=== PATIENT | female | born 1980 | race American Indian/Alaskan Native ===

== ENCOUNTER 2019-04-22 06:52 | Observation (INO) | payer BC, OTHER ==
--- NOTE | 2019-04-21 04:12 | History and Physical Report ---
History of Present Illness Date of examination: 04/17/19 Date of admission: 04/22/19 Chief complaint: abdominal pain, mass on ovary History of present illness: Visit Type: Acute Visit CC: abdominal pain. History of Present Illness: pt presents ER f/u: c/o abdo, voimitting, dx'd with mass on ovary (L).....................................................................Camelia Albright April 17, 2019 2:12 PM Pt states she had a sudden onset of pelvic pain and of nausea and vomiting that prompted visit to ER.While there, she was diagnosed with and 8cm cystic mass on the right ovary. Pt pain is predominiantly on the left side. Pt here for follow up. Pain is improved with pain meds but still present. Pt states she was told prior to delivey of her baby and during her pregancy she has a small dermoid cyst on her ovary. She states it was not removed because it was small and not causing her any problems. Pt was seen in ER at [facility] 4 days ago. She had both CT and abdominal sono done. TVUS was not done. The report states "patient refused," pt states she was in so much pain she was not aware that she was being asked to do the vaginal sonogram, but that she did not refuse the procedure. No torsion was noted on the US report. Pt advised of need for removal of the mass due to her pain and discomfort. She agrees. All risk, benefits, and alternatives were d/w pt and questions were addressed and answered. Pt to be consented for dx laproscopy, laproscopic cystectomy, possible oophrectomy, possible salpingectomy and any other indicated procedures. Vital Signs: Patient Profile: 39 Years Old Female LMP: 03/29/2019 Height: 70 inches (177.80 cm) Weight: 179 pounds BMI: 25.68 BP sittin / 86 (left arm) Menstrual History: LMP (date): 03/29/2019 Menarche: 12 Current Method of Contraception: OCP Date of Last Pap Smear: 12/11/2018 [employer] History Uterine Surgery (not C/S): negative Operations: negative Negative Past Surgical History Hospitalizations: negative Anesthesia Complications: negative Abnormal PAP: negative Uterine Anomaly: negative JOANA Exposure: negative Infertility: negative Infection History HIV Risk Eval: no Personal hx. of genital herpes: yes Partner hx. of genital herpes: no Hx of STD: None Active Medications (reviewed today): KETOROLAC 10 MG () one po q 4 to 6 hours .11/28 1.5-30 MG-MCG ORAL TABLET (NORETHIN RASHIDA-ETH ESTRAD-FE) 1 po qd Current Allergies (reviewed today): PENICILLIN G SODIUM (PENICILLIN G SODIUM SOLR) (Critical) Past Surgical History: Reviewed history from 07/15/2015 and no changes required: negative Negative Past Surgical History Risk Factors: Smoked Tobacco Use: Never smoker Smokeless Tobacco Use: Never Drug use: no HIV high-risk behavior: no Alcohol use: no Exercise: yes Seatbelt use: 100 % PAP Smear History: Date of Last PAP Smear: 12/11/2018 Laboratory Results Routine Urinalysis Leukocytes: negative Nitrite: negative Urobilinogen: negative Protein: 2+ Blood: negative Ketone: large (160) Bilirubin: negative Glucose: negative Physical Exam Appearance: well developed, well nourished, no acute distress; appears to be in pain Other Exams Abdomen: voluntary gurading of left lower quad and suprapubic areas, no rebound no guarding Skin: no ulcers, xanthomas Extremities: normal alignment, no joint enlargement, crepitus, masses or tenderness; normal tone and strength Genitourinary Exam Vulva: normal, no lesions or discharge Urethral meatus: normal size and location, no lesions or discharge Urethra: no discharge Bladder: no cystocele Vagina: normal appearance, no discharge, lesions. No evidence of cystocele or rectocele. Cervix: normal appearance, no lesions, no discharge Adnexa: mass palpated in the midline and in the left adnexa. Tenderness on exam Impression & Recommendations: Problem # 1: Mass of ovary (ICD-625.8) (BII63-E82.09) Orders: AFP TUMOR Marker alpha-fetoprotein serum(LC-678366) (CPT-90975) BHCG Quantitative (Q-8396)(LC-534434) (CPT-82513) Lactate dehydrogenase (KW543803)(Q593) (CPT-91603) Cancer Antigen (CA125) (Q-05163)(LC-255807) (CPT-48111) INHIBIN A(LY004586) (CPT-31617) Ofc Vst Est 93415 (CPT-94087) -reports states this is likely a dermoid but will obtain tumor markers at this time -s/sx of torsion were d/w pt and questions were addressed and answered. -flag sent to Ms. Lara to schedule the procedure LILY Medications Added to Medication List This Visit: 1) Ketorolac 10 Mg .... One po q 4 to 6 hours Past History Past Medical History: no pertinent history Past Surgical History: no surgical history [employer] History: abnormal PAP smear, herpes Family/Genetic History: other Social history: no significant social history, single Medications and Allergies Allergies Allergy/AdvReac Type Severity Reaction Status Date / Time Penicillins Allergy Unknown Verified 04/18/19 11:50 Home Medications Medication Instructions Recorded Confirmed Last Taken Type Norethindrone-E.estradiol-Iron 1 each PO DAILY 04/18/19 04/18/19 Unknown History [Blisovi Fe 1.5-30 Tablet] Review of Systems All systems: negative - Physical Exam Cardiovascular: Normal S1 Lungs: Positive: Clear to auscultation, Normal air movement Abdomen: Positive: normal appearance, soft. Negative: distention, tenderness, guarding Genitourinary (Female): Positive: normal external genitalia, normal perenium Adnexa: left: mass (fullness palpated on the left and at the midline), both: tenderness Extremities: Positive: normal. Negative: tenderness, edema Deep Tendon Reflex Grade: Normal +2 Results All other labs normal. Assessment and Plan - Patient Problems (1) Adnexal mass Status: Acute Plan to address problem: 8cm ovarian mass suspected dermoid -to OR for Laproscopic cystectomy, possible oophrectomy, possible salpingectomy and any other indicated procedures -all risk, benefits and alternatives were d/w pt and questions were addressed an answered. -consents to be signed and placed on the chart.
[~2019-04-22 06:52] MED LIST: CLEOCIN 900 MG/50 mL 900 MG/50 ML BAG IV ONE; GENTAMICIN 80 MG in NACL 0.9% 100 ML IV ONE; GENTAMICIN/NS 80 MG/100 ML 100 ML IV ONE
[2019-04-22] MEDS ORDERED: NACL BACTERIOSTATIC INFILTRATI ONE (07:22)
[2019-04-22] MEDS ORDERED: DILAUDID IV PRN (07:46)
--- NOTE | 2019-04-22 07:46 | Anesthesia Day of Surgery ---
Anesthesia Day of Surgery - Day of Surgery Patient Examined: Yes Patient H&P Reviewed: Yes Patient is NPO: Yes
--- NOTE | 2019-04-22 07:46 | Anesthesia Consultation ---
Anesthesia Consult and Med Hx Date of service: 04/22/19 - Airway Anesthetic Teeth Evaluation: Good (permanent lower retainer) ROM Head & Neck: Adequate Mental/Hyoid Distance: Adequate Mallampati Class: Class I Intubation Access Assessment: Good - Pulmonary Exam CTA: Yes - Cardiac Exam Cardiac Exam: RRR - Pre-Operative Health Status ASA Pre-Surgery Classification: ASA2 Proposed Anesthetic Plan: General - Pulmonary Hx Smoking: No Hx Respiratory Symptoms: No - Cardiovascular System Hx Hypertension: No - Central Nervous System CVA: No - Gastrointestinal Hx Gastroesophageal Reflux Disease: No - Endocrine Hx Renal Disease: No Hx Liver Disease: No Hx Insulin Dependent Diabetes: No Hx Non-Insulin Dependent Diabetes: No Hx Thyroid Disease: Yes (goiter; thyroid studies normal, no compressive symptoms) - Hematic Hx Anemia: Yes (beta-thallassemia) - Other Systems Hx Obesity: No - Additional Comments Anesthesia Medical History Comments: No prior GA. No FHx anesthetic complications.
[2019-04-22] MEDS ORDERED: GABAPENTIN PO NR (08:00)
[2019-04-22] MEDS ORDERED: VERSED IV NR (08:00)
[2019-04-22] MEDS ORDERED: TRANSDERM-SCOP TD NR (08:00)
[2019-04-22] MEDS ORDERED: LACTATED RINGERS 1,000 ML IV SCH (08:00)
[2019-04-22 08:12] LABS: Hematocrit 27.7 % (30.3-42.9); Hemoglobin 8.4 gm/dl (10.1-14.3); Mean Corpuscular HGB Conc 30 % (30-34); Platelet Count 421 K/mm3 (140-440); Red Cell Distribution Width 19.1 % (13.2-15.2)
[2019-04-22 08:14] LABS: Mean Corpuscular Volume 66 fl (79-97)
[2019-04-22] MEDS ORDERED: CLEOCIN 900 MG/50 mL 900 MG/50 ML BAG IV ONE (08:30)
[2019-04-22] MEDS ORDERED: GENTAMICIN/NS 80 MG/100 ML 100 ML IV ONE (08:30)
[2019-04-22] MEDS ORDERED: DILAUDID ONE (08:51)
[2019-04-22] MEDS ORDERED: DIPRIVAN 10 MG/ML IV ONE (08:52)
[2019-04-22] MEDS ORDERED: XYLOCAINE MPF 2% ONE (08:52)
[2019-04-22] MEDS ORDERED: ZEMURON IV ONE (08:54)
[2019-04-22] MEDS ORDERED: MARCAINE 0.5% INFILTRATI ONE ×2 (09:00→11:35)
[2019-04-22] MEDS ORDERED: DECADRON ONE (10:45)
[2019-04-22] MEDS ORDERED: ZOFRAN ONE (10:45)
[2019-04-22] MEDS ORDERED: TORADOL ONE (11:13)
[2019-04-22] MEDS ORDERED: BLOXIVERZ ONE (11:29)
[2019-04-22] MEDS ORDERED: ROBINUL ONE (11:29)
--- NOTE | 2019-04-22 11:36 | Event Note ---
Date: 04/22/19 Intra-op consult Dictated #[id number]
[2019-04-22] MEDS ORDERED: ZOFRAN IV PRN (12:04)
--- NOTE | 2019-04-22 12:04 | Operative Report ---
Operative Report Operative Report: Date of procedure: 04/22/2019 Pre-operative diagnosis: Adnexal mass Post-operative diagnosis: Same plus pelvic adhesions and torsion of left adnexa Procedure name(s): Diagnostic laparoscopy Lysis of adhesions Left salpingo-oophorectomy Surgeon: Dr. Oconnell It Support Technician: Certified surgical scrub language assistant Anesthesia: Gen. endotracheal anesthesia EBL: 100 mL Urine output: 250 mL of clear urine out at the procedure Fluids: 1350 mL Findings: Approximately 8-9 cm left adnexal mass extending from the left ovary wedged deep within the cul-de-sac. Adhesions of the mass to the posterior uterine wall and cul-de-sac. Normal right fallopian tube normal right ovary normal uterus. Indications: Patient presented with sudden onset of severe abdominal pain. Patient was seen in emergency room and was diagnosed with an 8 cm adnexal mass that appeared to be dermoid in nature. Patient was taken to the operating room for the above stated procedure. All risks benefits and alternatives were discussed with the patient. Consents were signed and placed on the chart. Procedure: Patient was taken to the operating room where she was placed under general endotracheal anesthesia in dorsal lithotomy position with legs in Sukumar stirrups. She was then prepped and draped in normal sterile fashion. Catheter was then placed at this time. The cervix is then dilated after being sounded to approximately 8 cm to allow placement of uterine manipulator. Attention was then turned to the abdominal cavity and which a 5 mm incision was made. The 5 mm trocar was then placed under direct visualization. The abdomen was then insufflated. As at this time that the adnexal mass was noted. A second 5 mm incision was then made in the suprapubic region. Under direct visualization a second trocar was placed. Adnexal mass again was noted with severe torsion being noted on the left adnexa. Attempts were made to unwind the mass however due to its size and the severity of the torsion cannot be done laparoscopically. In the process the mass did rupture with the spillage of what appeared to be old blood consistent with a chocolate cyst. As well as a otolaryngology rep fluid that seemed to be consistent with serous material. As at this time the decision was made to convert to open laparotomy. The 5 mm suprapubic incision was then extended to a low transverse incision. The incision was extended bilaterally down to the layer of the fascia. The fascia was incised in the midline and this incision was extended bilaterally with the Bovie as well as with the Yoon scissors. The superior aspect of the fascia was grasped with Ethan clamps and dissected off of the anterior rectus muscles using both the Bovie and the Yoon scissors. In similar fashion the inferior aspect of the fascia was grasped close clamps tented upward and dissected off of the anterior rectus muscle using the Yoon scissors. The rectus muscles were bluntly divided midline the peritoneum was identified and entered into bluntly. The O'Errol-O'Delaney retractor was then placed. The bowel was then packed away with wet laps. It was at this point that the adnexal mass was again identified and with blunt dissection was released from the posterior cul-de-sac and the sigmoid. The mass was then turned in a counterclockwise direction in order to release the torsion completely. As at this point using the LigaSure device that the infundibular pelvic ligament was then cauterized and transected as well as the portion of the left fallopian tube which was also adherent to the mass was cauterized and transected the mass was removed in its entirety into pieces. The pedicle was noted to be completely hemostatic. The posterior cul-de-sac was copiously irrigated. Gen. surgery was then called in to evaluate the sigmoid area to be sure that there was no signs of damage to serosa. Serosa was noted to be intact. The area again was co-proceed irrigated all laps were removed from the abdomen. The O'Errol-O'Delaney retractor was removed from the abdomen. Interceed was placed over the posterior cul-de-sac as well as the left adnexa. Adelaida was also placed along the posterior cul-de-sac and the left adnexa. The anterior rectus muscles were reapproximated using 3-0 Vicryl and [id number] stitches. The anterior rectus fascia was reapproximated using 0 Vicryl in a running fashion. The subcutaneous fat was reapproximated using 2-0 Vicryl in a running fashion. The subcuticular stitch was then performed using 4-0 Monocryl. The super umbilical incision was also reapproximated using Dermabond. All incisions was noted to be completely hemostatic. The low transverse abdominal incision was also covered with Dermabond as well. Excellent hemostasis was noted
--- NOTE | 2019-04-22 12:13 | Operative Report ---
PREOPERATIVE DIAGNOSES: 1. Left ovarian cyst. 2. Rule out small bowel injury. POSTOPERATIVE DIAGNOSIS: Left ovarian cyst. PROCEDURE: Small bowel exploration. ATTENDING PHYSICIAN: Jori Delgado MD ANESTHESIA: General. ESTIMATED BLOOD LOSS: None. FINDINGS: Inflammatory reaction on the small bowel adjacent to area of ovarian hemorrhagic cyst and dermoid cyst. SPECIMENS: None. DRAINS: None. COMPLICATIONS: None. INDICATIONS: This is a 39-year-old female who presented to [facility]OSPICE SP[facility]IT[facility] COORDIN[facility] for evaluation of an ovarian symptomatic cyst. The patient is assessed to be in need for diagnostic laparoscopy. The patient was brought to the operating room by Dr. Oconnell during the case conversion which required to open. The ovarian problem was resected. However, in that process due to the complicated nature of the procedure, there was concern of possible small bowel injury. Therefore, General Surgery was consulted. OPERATIVE NOTE: The patient was already on the table under general anesthesia in lithotomy position with the lower abdomen open. The patient was hemodynamically stable. At this point, I discussed the case with Dr. Oconnell to understand the details of the case. I scrubbed in and evaluated the small bowel that was adjacent to the previously resected cyst. Close evaluation revealed no evidence of any serosal injury. It appeared to me the reddish appearance on the bowel was inflammatory reaction. There was no evidence of any active bleeding. There was no evidence of any intestinal spillage. The bowel appeared to be completely intact. The rest of the bowel was already by lap sponges. It was out of the field; therefore, not at risk for injury. Therefore, I restricted my evaluation to the area that was exposed and adjacent to the cyst. It appeared to me to be completely intact and viable. It simply had overlying inflammatory reaction. No intervention or resection was necessary. Case was turned back over to Dr. Oconnell. We had discussed my impression. No specific postoperative care was required. The only thing I suggested was as the patient has inflammatory changes on the surface of the bowel, it may be worthwhile to place a barrier such as Seprafilm or Interceed over that area to minimize adhesion formation as this could be a point of bowel obstruction in the future. I qualified that with the statement that if there was some contraindication from an HOSPICE SPIRITUAL CARE COORDINATOR standpoint, then that is perfectly fine they can hold off. If not, I think it would be helpful in the future to avoid adhesions down in the pelvis. Case was turned back over to Dr. Oconnell. She was appreciative for the consult. JOB# [id number] ANTHONY/LIZZETH
[2019-04-22] MEDS: MORPHINE IV PRN ×2 (13:32→21:41)
--- NOTE | 2019-04-22 14:00 | Post Anesthesia Evaluation ---
- Post Anesthesia Evaluation Patient Participated: Yes Airway Patent: Yes Stable Respiratory Function: Yes Nausea/Vomiting: No Temp > 96.8F: Yes Pain Manageable: Yes Adequeate Hydration: Yes Anesthesia Complications: No
[2019-04-22] MEDS: CLEOCIN 600 MG/50 mL 600 MG/50 ML BAG IV SCH (16:05)
[2019-04-22] MEDS: D5LR 1,000 ML IV SCH (16:28)
[2019-04-22] MEDS: GENTAMICIN/NS 80 MG/100 ML 100 ML IV SCH (16:33)
--- NOTE | 2019-04-22 18:35 | Event Note ---
Date: 04/22/19 Pt doing well. Pain is well controlled at this time. Findings of surgery were d/w pt and questions were addressed and answered. Pt tolerating full liquid diet at this time. cont post op care. D/c home tomorrow if continues to do well and remains AFVSS.
[2019-04-22] MEDS: TORADOL IV SCH (18:57)
[2019-04-23] MEDS: CLEOCIN 600 MG/50 mL 600 MG/50 ML BAG IV SCH (00:04)
[2019-04-23] MEDS: GENTAMICIN/NS 80 MG/100 ML 100 ML IV SCH (00:41)
[2019-04-23] MEDS: D5LR 1,000 ML IV SCH (03:10)
[2019-04-23 03:59] LABS: Hematocrit 25.4 % (30.3-42.9); Hemoglobin 7.8 gm/dl (10.1-14.3)
[2019-04-23] MEDS: TORADOL IV SCH ×3 (04:47→13:00)
--- NOTE | 2019-04-23 08:25 | Discharge Summary ---
Providers - Providers Date of Admission: 04/22/19 12:04 Date of discharge: 04/23/19 Attending physician: ANNABEL CLARK Primary care physician: VINEET VILLA MD Hospitalization Reason for admission: other (ovarian mass) Procedure: other (diagnostic laproscopy; abdominal LSO; lysis of adhesions) Incision: normal, dry, intact Hospital course: Pt admitted with above stated procedure. Post op course was complicated by asymptomatic anemia that was present prior to procedure and treated with po iron. She was d/c home on POD#1 as she was doing well and desired d/c to home. Condition at discharge: Good Disposition: DC-01 TO HOME OR SELFCARE - Discharge Diagnoses (1) Adnexal mass Status: Acute (2) S/P left oophorectomy Status: Acute Plan - Discharge Medications Prescriptions: Docusate Sodium [Colace] 100 mg PO BID PRN #60 capsule PRN Reason: Constipation Ferrous Sulfate [Feosol 325 MG tab] 325 mg PO QDAY #60 tablet Ibuprofen [Motrin 800 MG tab] 800 mg PO Q8HR PRN #30 tablet PRN Reason: Pain, Moderate (4-6) oxyCODONE /ACETAMINOPHEN [Percocet 5/325] 1 tab PO Q4HR #30 tab Ketorolac [Toradol] 10 mg PO Q6H PRN #30 tablet PRN Reason: Pain - Provider Discharge Summary Additional instructions: [] Smoking cessation referral if applicable(refer to patient education folder for contact #) [] Refer to [facility] Booklet Call your doctor immediately for: * Fever > 100.5 * Heavy vaginal bleeding ( >1 pad per hour) * Severe persistent headache * Shortness of breath * Reddened, hot, painful area to leg or breast * Drainage or odor from incision. * Keep incision clean and dry at all times and follow doctor's instructions regarding bathing/showering - Follow up plan Follow up: VINEET VILLA MD [Primary Care Provider] - 7 Days
--- NOTE | 2019-04-23 08:25 | Progress Note ---
Assessment and Plan - Patient Problems (1) Adnexal mass Current Visit: No Status: Acute (2) S/P left oophorectomy Current Visit: Yes Status: Acute Plan to address problem: s/p LSO: -cont post op care -d/c home this pm if continues to do well -aggressive po hydration so that she has spontaneous voiding. Subjective - Subjective Date of service: 04/23/19 Principal diagnosis: POD#1 w/p Abdominal LSO; Dx laproscopy Interval history: Pt doing well eating a regular diet this am. She has ambulated since removal of the rangel cath. I d/w anemia she had pre and the h/h is appropriate for blood loss on yesterday. I d/w anemia precautions and need to take po iron. She expressed understanding. Pt states she has not had a spontaneous void at this time but other patiño states pain is well controlled and had no issues over night. Patient reports: appetite normal, pain well controlled, ambulating normally, no dizzy ambulation, no nauseated Objective - Vital Signs Latest vital signs: Vital Signs Temp Pulse Resp BP Pulse Ox 04/23/19 05:07 98.5 F 88 20 108/66 85 04/23/19 00:15 98.2 F 83 18 107/61 96 04/22/19 20:04 98.3 F 77 20 113/71 100 04/22/19 16:17 97.8 F 78 18 124/80 100 04/22/19 12:30 76 14 124/74 100 04/22/19 12:15 98.2 F 74 16 122/72 100 04/22/19 12:00 76 16 128/78 100 04/22/19 11:55 76 12 127/76 100 04/22/19 11:50 79 12 127/73 100 04/22/19 11:45 97.8 F 83 26 H 126/73 100 Intake and Output 04/22/19 04/23/19 04/23/19 22:59 06:59 14:59 Intake Total 150 1360 Output Total 1700 Balance 150 -340 Intake: IV 150 1000 CLEOCIN 600 MG/50 mL 600 50 mg In 50 ml @ 100 mls/hr IV Q8H [facility] Rx#:[id number] D5lr 1,000 ml @ 125 mls/ 1000 hr IV DIRECT [facility] Rx#: [id number] Gentamicin/Ns 80 mg/100 100 ml 100 ml @ 200 mls/hr IV Q8H [facility] Rx#:[id number] Oral 360 Output: Urine 1700 Indwelling Catheter 1700 Other: Total, Intake Amount 120 Total, Output Amount 200 Voiding Method Indwelling Catheter - Exam Breasts: Present: deferred Cardiovascular: Present: Normal S1, Normal S2 Lungs: Present: Clear to auscultation, Normal air movement Abdomen: Present: normal appearance, soft, normal bowel sounds. Absent: distention, tenderness, guarding Extremities: Present: normal. Absent: tenderness, edema Deep Tendon Reflex Grade: Normal +2 Incision: Present: normal, dry, intact (open to air. no s/sx of infection or bleeding.) - Labs Labs: Abnormal lab results 04/23/19 Range/Units 03:36 Hgb 7.8 L (10.1-14.3) gm/dl Hct 25.4 L (30.3-42.9) %
[2019-04-23] MEDS: NORCO 5/325 PO PRN ×2 (10:13→14:29)
[2019-04-23 16:41] VITALS: BP 112/71
== END 2019-04-23 17:00 | disposition home or self-care (01) ==
LOC: OR 06:52 → OB 12:04
PROVIDERS: ADMIT Obstetrics & Gynecology; ATTEND Obstetrics & Gynecology
DX: N94.89 Other specified conditions associated with female genital organs and menstrual cycle (principal); R19.00 Intra-abdominal and pelvic swelling, mass and lump, unspecified site; N83.202 Unspecified ovarian cyst, left side; Z90.721 Acquired absence of ovaries, unilateral
CPT/HCPCS: 36415; 44020; 58661; 81025; 85014; 85018; 85027; 88307; 96361; 96365; 96366; 96367; 96375; 96376; C1765; G0378; J1100; J1170; J1580; J1885; J2250; J2270; J2405; J2704; J2710; J7120; J7121